=== PATIENT | male | born 1975 | race Two or more races ===

== ENCOUNTER 2021-03-30 13:58 | Emergency (ER) | payer BC ==
[~2021-03-30] VITALS: Ht 170.2 cm; Wt 104.3 kg
[2021-03-30 14:06] VITALS: BP_SYST 162
--- NOTE | 2021-03-30 14:06 | NUR ---
Placed in room 1 . Placed on school lunch monitor, blood pressure machine and pulse oximeter. To gown for exam. Side rails up.
--- NOTE | 2021-03-30 14:07 | NUR ---
Pt came into ER with complaint of left arm pain starting at the shoulder and radiating down to bicep. Pt is AAOX4 speaking full sentences. Breathing is even and unlabored. BP elevated 162/100. Pt reports he may have slept on his arm wrong. Pt reports cramping pain 5/10. Resting in gurney vital signs holding. no distress noted. Full ROM of left arm noted.
--- NOTE | 2021-03-30 14:18 | NUR ---
ER at bedside examining patient.
[2021-03-30] MEDS ORDERED: IBUP-1969 PO (14:32)
[2021-03-30] MEDS ORDERED: AMLO5TAB4 PO (14:32)
[2021-03-30 15:19] VITALS: BP_SYST 162
--- NOTE | 2021-03-30 15:20 | NUR ---
Patient given written and verbal discharge instructions and verbalizes understanding. ER MD discussed with patient the results and treatment provided. Patient in stable condition. ID arm band removed. Rx of motrin and amlodipine given. Patient educated on pain management and to follow up with PMD. Pain Scale 0/10. Opportunity for questions provided and answered. Medication side effect fact sheet provided.
== END 2021-03-30 15:20 | disposition home or self-care (01) ==
LOC: SED 13:58
DX: M79.602 Pain in left arm (principal)
CPT/HCPCS: 93005; 99283